=== PATIENT | female | born 1940 | race Caucasian/White ===

== ENCOUNTER 2019-03-16 09:04 | Day surgery (SDC) | payer MEDICARE, OTHER ==
[~2019-03-16 09:04] MED LIST: LIDOCAINE 2% INJ (20 MG/ML) 20 ML MDV ONE; PROPOFOL INJ 200 MG/20 ML VIAL IV ONE
[2019-03-16 10:51] VITALS: BP 104/51
--- NOTE | 2019-03-16 12:43 | Operative Report ---
Operative Report DATE OF SURGERY: 03/16/19 PREOPERATIVE DIAGNOSIS: Change in bowel habits POSTOPERATIVE DIAGNOSIS: Right-sided colon inflammation status post biopsy. Diverticulosis without any evidence of diverticulitis OPERATION: Colonoscopy with biopsy SURGEON: SHAI LAGUNA ANESTHESIA: LMAC TISSUE REMOVED OR ALTERED: As noted above. COMPLICATIONS: None. ESTIMATED BLOOD LOSS: None. INTRAOPERATIVE FINDINGS: As noted above. PROCEDURE: The risks, benefits and alternatives of the procedure including the risk of bleeding, perforation requiring surgery have been explained to the patient in detail and informed consent has been obtained. Patient is taken back to the endoscopy suite and placed in a left, lateral decubital position. Timeout was called. Propofol medication is administered. Rectal examination is done which did not reveal any masses, tears or fissures. An Olympus videoscope was inserted to the patient's rectum. The scope was then carefully advanced all the way to the cecum. The cecum was identified by the usual anatomical landmarks including the ileocecal valve as well as the appendiceal office. Photodocumentation is obtained. The scope was then sequentially pulled back via the various segments of the colon including the ascending colon, hepatic flexure, transverse colon, splenic flexure, descending colon finding to the rectosigmoid portions of the colon. Retroflexion maneuvers performed. Patient tolerated the procedure well. No immediate postprocedure complications are noted. Patient is discharged in good condition. Discharge date 03/16/2019. Discharge diet: Regular. Discharge activity: Regular. 2 to 3-week follow-up to discuss findings. Patient is instructed to call the office or proceed to the emergency room should there be any further problems or questions. Wait on the pathology.
== END 2019-03-16 10:50 | disposition home or self-care (01) ==
LOC: END 09:04
PROVIDERS: ATTEND Internal Medicine Gastroenterology
DX: K57.30 Diverticulosis of large intestine without perforation or abscess without bleeding (principal); K52.9 Noninfective gastroenteritis and colitis, unspecified; I10 Essential (primary) hypertension; E11.9 Type 2 diabetes mellitus without complications; Z79.899 Other long term (current) drug therapy; E78.00 Pure hypercholesterolemia, unspecified; E07.9 Disorder of thyroid, unspecified
CPT/HCPCS: 88305 ×2; 00811; J3490; J2704; 45380; 811

== ENCOUNTER → 2020-05-06 | Outpatient (CLI) | payer MEDICARE, OTHER ==
--- NOTE | 2020-05-09 14:33 | Pulmonary Function Test ---
Pulmonary Function Test Date of Procedure:: 05/06/20 INDICATION:: Dyspnea Referring Provider: Dr. Yimi Lemus Edge Trimmer Mechanic: Argenis Cade, [employer], [employer] OPERATOR - Report Spirometry: Spirometry: pre-FVC: 3.15 L 117% pre-FEV:1 2.32 L 123% pre-FEV1/FVC %: 74 predicted: 80 [id number]%: 1.58 L 109% Impression: No obstructive ventilatory defect.
== END ==
LOC: RT 07:43
PROVIDERS: ATTEND Family Medicine
DX: R06.02 Shortness of breath (principal)
CPT/HCPCS: 94010